=== PATIENT | male | born 1980 | race Two or more races ===

== ENCOUNTER 2025-05-25 14:05 | Emergency (ER) | payer MEDICAID, SELFPAY ==
[2025-05-25 14:45] VITALS: BP 159/78; PULSE 66; RESP 18; TEMP 37.1; O2SAT 95
--- NOTE | 2025-05-25 15:02 | XR_ITS ---
Examination: Lumbar spine 3 views Technique one AP lateral coned lateral lower lumbar spine 3 views Date and time: May 25, 2025 1518 hours INDICATIONS: Low back pain beginning 3 days ago. FINDINGS: Transitional S1 vertebral body Moderate disc narrowing L5-S1 Prominent lumbar spondylosis No lumbar fracture IMPRESSION: Moderate degenerative disc disease L5-S1
--- NOTE | 2025-05-25 15:03 | PD.EDBACK ---
ED Back Injury Pain RME/HPI General Chief Complaint: Back Pain/Injury Stated Complaint: Back pain X 3 days Time Seen by Provider: 05/25/25 14:57 Arrival date/time: 05/25/25 14:05 RME / HPI RME / HPI Narrative: 44-year-old male patient came in for evaluation regarding low back pain. Onset of symptoms for the last few days as worsening low back pain, described as sharp pain, severity moderate. Patient denies any dysuria. Denies any recent fall or trauma. Denies any fever. Denies any saddle anesthesia. Denies any urinary incontinence. Denies any bowel incontinence. Patient took Tylenol yesterday with no relief. Related Data Home Medications ?Medication ?Instructions ?Recorded ?Confirmed aspirin 325 mg tablet 325 mg PO QDAY 07/31/19 01/27/21 levetiracetam 500 mg tablet 500 mg PO BID 07/31/19 01/27/21 quetiapine 25 mg tablet 25 mg PO DAILY 07/31/19 01/27/21 metformin 500 mg tablet 500 mg PO QPM 10/18/19 01/27/21 Previous Rx's ?Medication ?Instructions ?Recorded hydrocortisone 2.5 % topical cream 1 applic DE QDAY PRN hemorrhoids 01/10/24 with perineal applicator #30 grams (Anusol-HC) lidocaine 5 % topical cream 1 applic topical BID PRN pain #30 01/10/24 grams acetaminophen 300 mg-codeine 30 mg 1 tab PO Q8H PRN pain #20 tabs 05/25/25 tablet Allergies Allergy/AdvReac Type Severity Reaction Status Date / Time No Known Allergies Allergy Verified 05/25/25 14:08 Review of Systems Review of Systems Narrative Review of Systems: Review of system reviewed and within normal limits except mentioned in HPI ED Exam Narrative Physical exam: VITAL SIGNS: Reviewed. GENERAL APPEARANCE: Alert and interactive, follows commands, no acute distress, HEAD AND FACE: Non-traumatic. ENT: PERRL, pink conjunctivitis, eyelid no trauma, Mucous membrane moist. NECK: Supple, nontender, no nuchal rigidity. CHEST: No tenderness, no crepitus, no paradoxical movement, no retractions. LUNGS: Clear, well ventilated, symmetric, no rales, no wheezing, no ronchi, no stridor, good breath sounds bilaterally. HEART: Regular rate, regular rhythm, no murmur, no gallops. ABDOMEN: Soft, positive bowel sounds, nondistended, no guarding, nontender, no rebound, no masses, RECTAL: Deferred. GENITAL: Deferred. NEUROLOGICAL: Gross motor function intact sensory function intact, Appropriate for age. MUSCULOSKELETAL: low back tenderness, no midline tenderness, full range of motion. EXTREMITIES: Nontender, full range of motion. SKIN: Color pink, dry, no rash, no lacerations, no abrasions, no contusions. LYMPHATICS: Deferred. Course Quality Measures none Orders Category Date Time Status XR lumbar spine 2-3V Stat Exams 05/25/25 15:02 Completed UA, C/S IF [Urinalysis, C/S if Indicated] Stat Lab 05/25/25 15:09 Completed Ketorolac Inj [Toradol Inj] Med 05/25/25 15:02 Discontinued 30 mg IM X1 ONE Vital Signs Vital signs: Vital Signs Temperature 98.7 F 05/25/25 14:45 Pulse Rate 66 05/25/25 14:45 Respiratory Rate 18 05/25/25 14:45 Blood Pressure 159/78 H 05/25/25 14:45 Pulse Oximetry (%) 95 05/25/25 14:45 Oxygen Delivery Method Room Air 05/25/25 14:45 Back Pain / Injury MDM Narrative MDM Narrative:: 44-year-old male patient came in for evaluation regarding low back pain. Onset of symptoms for the last few days as worsening low back pain, described as sharp pain, severity moderate. Patient denies any dysuria. Denies any recent fall or trauma. Denies any fever. Denies any saddle anesthesia. Denies any urinary incontinence. Denies any bowel incontinence. Patient took Tylenol yesterday with no relief. Urinalysis is negative for UTI. X-ray of the lumbar spine showed Moderate degenerative disc disease L5-S1 Further imaging is not needed at this time, patient is not showing any sign of cauda equina syndrome. Patient data External records reviewed:: None Clinical information provided by:: patient Social determinants that could affect healthcare access:: none Patient has the following chronic illnesses:: History of CVA, diabetes mellitus How is presenting disease/condition affected by chronic disease/condition?: exacerbated by Evaluation data The following diagnostics were reviewed and interpreted by me:: lab results and radiology exam(s) Lab and/or radiology exams considered but not ordered:: None Interpretation Summary: See results MDM Medications / Prescriptions Medications or Prescriptions considered but not ordered:: None Medication administrations:: Medication Administration History Discontinued Medications Ketorolac Tromethamine (Ketorolac Inj 60 Mg/2 Ml Vial) 30 mg IM X1 ONE Stop: 05/25/25 15:03 Last Admin: 05/25/25 15:48 Dose: 30 mg Documented By: RICCARDO Toradol IM Consultations Consultation(s) initiated? (list below): No Diagnosis Differential diagnosis back pain/injury: sciatica and strain of lumbar region Most likely diagnosis given after review of the tests above:: low back pain Admission Indicated Admission indicated?: not indicated Admission Request Was there a request for admission?: No Disposition Plan Disposition Plan: Discharge Discharge Attestation Discharge Attestation: The patient and all family members were given an opportunity to ask questions and understood the discharge instructions. Discharge instructions specifically effects, indications for sooner follow up or return to the emergency department, and the expected course of current diagnosis. Patient condition: Stable Discharge Plan Plan Patient Disposition: HOME (Self Care) Discharge Disposition comment: stable Prescriptions/Referrals Prescriptions/Med Rec: New acetaminophen-codeine 300-30 mg tablet 1 tab PO Q8H PRN (Reason: pain) Qty: 20 0RF No Action quetiapine 25 mg Tablet 25 mg PO DAILY aspirin 325 mg Tablet 325 mg PO QDAY levetiracetam 500 mg Tablet 500 mg PO BID metformin 500 mg Tablet 500 mg PO QPM hydrocortisone [Anusol-HC] 2.5 % cream with perineal applicator 1 applic DE QDAY PRN (Reason: hemorrhoids) Qty: 30 0RF lidocaine 5 % cream 1 applic topical BID PRN (Reason: pain) Qty: 30 0RF Referrals: Salty Fenton MD [Primary Care Provider] - In 1 week Problem List Clinical Impression: Back pain Patient/Caregiver Discharge Instructions Discharge Activity: activity as tolerated Education Materials: Back Exercises: Back Press Additional Instructions: Thank you for the opportunity for serving you today. You are stable for discharged . You are advised to: Follow-up with your PCP in 1 to 2 days Return to ED for worsening of symptoms Increase oral fluids Take medication as prescribed Print Language: Maltese Stand Alone Forms: Joanie Award Info., Patient Portal Info Letter
[2025-05-25 15:19] LABS: Collection Type, Urine Clean Catch; RBC,Urine 0 /hpf (0-3); WBC,Urine 0 /hpf (0-5)
[2025-05-25 15:47] LABS: Bilirubin,Urine Negative (Negative); Blood,Urine Negative (Negative); Clarity,Urine Clear (Clear/Hazy); Color,Urine Colorless (Lt Yel-Yel); Culture Indicated,Urine Not Indicated; Glucose, Urine Negative (Negative); Ketones,Urine Negative (Negative); Leukocyte Esterase,Urine Negative (Negative); Nitrite,Urine Negative (Negative); PH,Urine 6.5 (5.0-7.0); Protein,Urine Negative (Neg - Trace); Specific Gravity,Urine 1.003 (1.001-1.035); Squamous Epithelial Cell,Urine < 1 /hpf (0-5); Urobilinogen,Urine Negative mg/dL (0.0-1.0)
[2025-05-25] MEDS: KETOROLAC INJ 60 MG/2 ML VIAL 30 MG IM (15:48)
[2025-05-25 20:02] VITALS: BP 134/81; PULSE 55; RESP 15; TEMP 36.4; O2SAT 97
== END 2025-05-25 20:09 | disposition home or self-care (01) ==
PROVIDERS: Nurse Practitioner Family; Emergency Provider Emergency Medicine; PCP Family Medicine
DX: M51.370 Other intervertebral disc degeneration, lumbosacral region with discogenic back pain only (principal)
CPT/HCPCS: 72100; 81001; 96372; 99283; J1885